=== PATIENT | male | born 1940 | race Caucasian/White ===

== ENCOUNTER 2018-01-21 11:32 | Day surgery (SDC) | payer MEDICARE, OTHER ==
[2018-01-21] MEDS ORDERED: LIDOCAINE 2% MDV (20MG/ML) 20ML VIAL IV ONE (11:33)
[2018-01-21] MEDS ORDERED: PROPOFOL 10 MG/ML VIAL IV ONE (11:33)
[2018-01-21 12:40] LABS: BASO % 0.9 % (0-6); EOS % 3.2 % (0-6); GRAN % 66.1 % (47-80); HEMATOCRIT 35.5 % (42.0-52.0); HEMOGLOBIN 10.6 gm/dl (14.0-18.0); LYMPH % 19.7 % (16-45); MEAN PLATELET VOLUME 8.2 fl (7.4-10.4); MONO % 10.1 % (0-9); PLATELET COUNT 301 K/uL (130-400); RED BLOOD COUNT 4.08 M/uL (4.40-5.70); WHITE BLOOD COUNT W/O DIFF 6.9 K/uL (4.2-12.2)
[2018-01-21 12:42] LABS: MEAN CORPUSCULAR HEMOGLOBIN 25.9 pg (27-33)
[2018-01-21 12:44] LABS: MEAN CORPUSCULAR HGB CONC 29.9 g/dl (32-36)
[2018-01-21 12:56] LABS: ALB/GLOB RATIO 1.1 (1.1-1.8); ALBUMIN 3.8 g/dL (4.0-5.0); ALKALINE PHOSPHATASE 166 U/L (40-129); ALT/SGPT 27 U/L (<41); AST/SGOT 21 U/L (10.0-50.0); BLOOD UREA NITROGEN 21 mg/dL (8-23); CREATININE 1.1 mg/dL (0.7-1.2); EST GLOMERULAR FILTRATION RATE > 60 mL/min; GLUCOSE,RANDOM 115 mg/dL (74-109); TOTAL PROTEIN 7.4 g/dL (6.6-8.7)
--- NOTE | 2018-01-22 19:52 | Operative Note ---
DATE OF PROCEDURE: 01/21/18 PROCEDURE: CARDIOVERSION. OPERATING PHYSICIAN: Yohan Moura M.D. INDICATIONS: Persistent atrial fibrillation. PRIMARY CARE PHYSICIAN: Dr. Peewee Carmen. PROCEDURE DESCRIPTION: Mr. Crisostomo was brought into the Cardioversion Room in a fasting state and the defibrillation pads were applied in the anteroposterior position. Anesthesia was administered by a BIOINFORMATICS SPECIALIST. Synchronized cardioversion with 100 joules of biphasic energy was initially tired, which was not successful and then the energy was increased to 200 joules of biphasic energy, which was also not successful and on the third attempt, the atrial fibrillation switched to atrial flutter, which is currently in atrial flutter with a controlled ventricular rate at 80 beats per minute. IMPRESSION: SYNCHRONIZED ELECTRICAL CARDIOVERSION WITH 100 JOULES AND WITH 200 JOULES AND THEN WITH ANOTHER 200 JOULES OF BIPHASIC ENERGY, WHICH CONVERTED THE ATRIAL FIBRILLATION TO ATRIAL FLUTTER. THE PATIENT IS HEMODYNAMICALLY STABLE. JOB NUMBER: [id number] MTDD
== END 2018-01-21 14:15 | disposition home or self-care (01) ==
LOC: SUR 11:32
PROVIDERS: ATTEND Internal Medicine
DX: I48.1 Persistent atrial fibrillation (principal); Z79.01 Long term (current) use of anticoagulants; I10 Essential (primary) hypertension; E11.9 Type 2 diabetes mellitus without complications; E78.00 Pure hypercholesterolemia, unspecified; D64.9 Anemia, unspecified
CPT/HCPCS: 80053; 85025; 93005

== ENCOUNTER 2018-07-17 06:24 | Day surgery (SDC) | payer MEDICARE, OTHER ==
[2018-07-17] MEDS ORDERED: EPINEPHRINE 1 MG/ML AMPUL SQ ONE (06:25)
[2018-07-17] MEDS ORDERED: LIDOCAINE 2% MDV (20MG/ML) 20ML VIAL IV ONE ×2 (06:25)
[2018-07-17] MEDS ORDERED: TETRACAINE HCL 0.5% 15 ML OPTH BTL OPTH ONE (06:25)
[2018-07-17] MEDS ORDERED: PROPOFOL 10 MG/ML VIAL IV ONE (06:25)
[2018-07-17] MEDS ORDERED: NEOMYCIN/POLY./DEXAM OPTH OINT OPTH ONE (06:25)
[2018-07-17] MEDS ORDERED: CIPROFLOXACIN HCL 0.0015 GM, PHENYLEPHRINE HCL 0.05 GM, KETOROLAC TROMETHAMINE 0.000625 GM MC ONE ×5 (11:30)
--- NOTE | 2018-07-18 12:07 | OP NOTE CHAMES ---
DATE OF PROCEDURE: July 17, 2018. PREOPERATIVE DIAGNOSIS: Nuclear sclerotic cataract, left eye. POSTOPERATIVE DIAGNOSIS: Nuclear sclerotic cataract, left eye. OPERATION: Phacoemulsification of cataractous lens with implantation of intraocular lens. LENS IMPLANT USED: Covarrubias Model PCB00 + 22.5 diopters. COMPLICATIONS: None. PROCEDURE IN DETAIL: Following a retrobulbar and facial block, the patient was prepped and draped in the usual fashion for eye surgery. A lid speculum was placed in the left eye after which a 2.4 mm tunnel wound was placed at the temporal limbus and dissected into clear cornea. A paracentesis was placed at 2 oclock hours to the left and right of the initial incision and the chamber deepened with Viscoelastic. The keratome was then used to enter the anterior chamber after which the continuous circular capsulorrhexis was accomplished without difficulty using a bent needle and a Utrata forceps. Hydrodissection and hydrodelineation of the lens was performed after which the nucleus of the lens was removed using the Phaco handpiece in the [id number] technique. The residual cortical material was irrigated and aspirated from the eye after which the bag and chamber were re-examined. The bag was re-inflated with Viscoelastic and the intraocular lens injected into the capsular bag where it centered well. The Viscoelastic was then copiously irrigated and aspirated from the eye after which the temporal tunnel wound and paracentesis were hydrated and the wounds were examined. They were noted to be watertight. The lid speculum was removed from the eye and the eye patched and shielded. The patient was transferred to the recovery room in satisfactory condition and given an appointment to be reexamined in the clinic later today or as directed by Dr. Fontana. JOB NUMBER: [id number] [facility]
== END 2018-07-17 09:08 | disposition home or self-care (01) ==
LOC: SUR 06:24
PROVIDERS: ATTEND Ophthalmology
DX: H25.12 Age-related nuclear cataract, left eye (principal); D64.9 Anemia, unspecified; I50.9 Heart failure, unspecified; I48.1 Persistent atrial fibrillation; E11.9 Type 2 diabetes mellitus without complications; E78.00 Pure hypercholesterolemia, unspecified; Z79.4 Long term (current) use of insulin; Z79.01 Long term (current) use of anticoagulants; K21.9 Gastro-esophageal reflux disease without esophagitis
CPT/HCPCS: 36416; 82948; 83540; 85014; 85018; J0171

== ENCOUNTER 2018-07-31 06:15 | Day surgery (SDC) | payer MEDICARE, OTHER ==
[2018-07-31] MEDS ORDERED: PROPOFOL 10 MG/ML VIAL IV ONE (06:16)
[2018-07-31] MEDS ORDERED: EPINEPHRINE 1 MG/ML AMPUL SQ ONE (06:16)
[2018-07-31] MEDS ORDERED: TETRACAINE HCL 0.5% 15 ML OPTH BTL OPTH ONE (06:16)
[2018-07-31] MEDS ORDERED: LIDOCAINE 2% MDV (20MG/ML) 20ML VIAL IV ONE ×2 (06:16)
[2018-07-31] MEDS ORDERED: NEOMYCIN/POLY./DEXAM OPTH OINT OPTH ONE (06:16)
[2018-07-31] MEDS ORDERED: CIPROFLOXACIN HCL 0.0015 GM, PHENYLEPHRINE HCL 0.05 GM, KETOROLAC TROMETHAMINE 0.000625 GM MC ONE ×5 (11:15)
[2018-08-01] MEDS ORDERED: CIPROFLOXACIN HCL 0.0015 GM, PHENYLEPHRINE HCL 0.05 GM, KETOROLAC TROMETHAMINE 0.000625 GM MC ONE ×5 (09:00)
--- NOTE | 2018-08-02 07:30 | Operative Note ---
DATE OF PROCEDURE: 07/31/18 PREOPERATIVE DIAGNOSIS: NUCLEAR SCLEROTIC CATARACT, RIGHT EYE. POSTOPERATIVE DIAGNOSIS: NUCLEAR SCLEROTIC CATARACT, RIGHT EYE. PROCEDURE: PHACOEMULSIFICATION OF CATARACTOUS LENS WITH IMPLANTATION OF INTRA- OCULAR LENS. SURGEON: MARY MAYFIELD M.D. LENS IMPLANT USED: PECK MODEL PCB00 +22.0 DIOPTERS. COMPLICATIONS: NONE. PROCEDURE: The patient was given reference tremaine at the 0 and 180-degree position prior to being blocked in the usual fashion with the retrobulbar block in the right eye. The patient was then prepped and draped in the usual fashion and a lid speculum placed in the right eye. At this point, the corneal marker was used to create markings on the cornea at 168 degrees after which, a scleral tunnel wound was placed at the temporal limbus of 2.4 mm cord length. A paracentesis was placed 2 hours to the left and right of this and the chamber deepened with Viscoelastic. The keratome was used to enter through the scleral tunnel wound after which the continuous circular capsulorrhexis was accomplished without difficulty. Hydrodissection of the lens was performed and the nucleus of the lens was removed in a divide and conquer fashion. The residual cortical material was irrigated and aspirated from the eye and the bag and chamber were then reinflated with Viscoelastic. The intraocular lens was placed into the capsular bag and oriented to a position 10 degrees shorter the intended final access. The residual Viscoelastic was removed from the eye and the eye was then reinflated and the intraocular lens dialed into position at 168 degrees. The wound was noted to be water-tight to direct encounter pressure. The lid speculum was removed and the eye was patched and shielded to be re-examined later in the afternoon. JOB NUMBER: [id number] [facility]
== END 2018-07-31 09:25 | disposition home or self-care (01) ==
LOC: SUR 06:15
PROVIDERS: ATTEND Ophthalmology
DX: H25.11 Age-related nuclear cataract, right eye (principal); I48.91 Unspecified atrial fibrillation; Z79.01 Long term (current) use of anticoagulants; E11.9 Type 2 diabetes mellitus without complications; Z79.4 Long term (current) use of insulin; K21.9 Gastro-esophageal reflux disease without esophagitis; E78.00 Pure hypercholesterolemia, unspecified; D64.9 Anemia, unspecified; Z86.73 Personal history of transient ischemic attack (TIA), and cerebral infarction without residual deficits
CPT/HCPCS: 36416; 82948; J0171